=== PATIENT | male | born 2000 ===

== ENCOUNTER 2021-12-19 18:55 | Emergency (ER) | payer SELFPAY ==
[2021-12-19 20:13] VITALS: BP 135/95
--- NOTE | 2021-12-19 22:06 | XRay Report ---
CHEST 2 VIEWS INDICATION / CLINICAL INFORMATION: PAIN SP FALL. COMPARISON: None available. FINDINGS: SUPPORT DEVICES: None. HEART / MEDIASTINUM: No significant abnormality. LUNGS / PLEURA: No significant pulmonary or pleural abnormality. No pneumothorax. ADDITIONAL FINDINGS: No significant additional findings. IMPRESSION: 1. No acute findings. Signer Name: Tucker Cunningham DO Signed: 12/19/2021 10:02 PM Workstation Name: [id number]
[2021-12-20 00:34] LABS: Hematocrit 39.2 % (35.5-45.6); Hemoglobin 13.6 gm/dl (11.8-15.2); Mean Corpuscular HGB Conc 35 % (32-34); Mean Corpuscular Volume 88 fl (84-94); Platelet Count 184 K/mm3 (140-440); Red Blood Count 4.44 M/mm3 (3.65-5.03)
[2021-12-20 01:14] LABS: Alanine Aminotransferase 12 units/L (7-56); Albumin 4.7 g/dL (3.9-5); Blood Urea Nitrogen 14 mg/dL (9-20); Hemolysis Index 9
[2021-12-20 01:25] LABS: BUN/Creatinine Ratio 20
--- NOTE | 2021-12-21 08:53 | Electrocardiograph Report ---
[facility] Test Date: 2021-12-19 Test Time: 19:07:55 Pat Name: DYLON PEREZ Department: Room: Gender: M Wellness Manager: SOHAM : 2000 Requested By: LONA HILTON Order Number: [id number] Reading MD: Carlton Mackenzie Measurements Intervals [place] Rate: 102 P: 34 GA: 173 QRS: -14 QRSD: 95 T: -7 QT: 376 QTc: 489 Interpretive Statements Sinus tachycardia Prolonged QT interval RSR' IN V1 OR V2, PROBABLY NORMAL VARIANT No previous ECG available for comparison Electronically Signed On 12-21-2021 8:53:31 EDT by Carlton Mackenzie
== END 2021-12-20 03:30 | disposition left against medical advice (07) ==
LOC: ED 18:55
DX: R07.9 Chest pain, unspecified (principal); Z53.21 Procedure and treatment not carried out due to patient leaving prior to being seen by health care provider
CPT/HCPCS: 36415; 71046; 80053; 82550; 85027; 93005